=== PATIENT | female | born 1960 | race African-American/Black ===

== ENCOUNTER 2017-07-13 18:10 | Inpatient (IN) | payer MEDICAID ==
[~2017-07-13] VITALS: Ht 160 cm; Wt 49.0 kg
--- NOTE | 2017-07-13 18:10 | NUR ---
PATIENT BIBA TO BED 11; DR. CANDELARIA AND RESPIRATORY THERAPIST LIS AT BEDSIDE.
[2017-07-13 18:12] VITALS: BP 109/82
--- NOTE | 2017-07-13 18:12 | NUR ---
56Y/F LISAA FROM [facility]IS [facility] FOR ACUTE ONSET OF SOB. AWAKE AND ALERT ON ARRIVAL. TO BED 11.AAOX4 WITH EVEN AND STEADY GAIT; VSS; PATIENT POSITIONED FOR COMFORT; HOB ELEVATED; BEDRAILS UP X1; BED DOWN. ER MD MADE AWARE OF PT STATUS.
[2017-07-13] MEDS ORDERED: methylPREDNISolone SS 125 MG/2 ML VIAL IVP ONE (18:15)
[2017-07-13] MEDS ORDERED: ALBUTEROL SULFATE/IPRATROPIU 3 ML SOL IH ONE ×2 (18:15→21:50)
[2017-07-13] MEDS ORDERED: OMEP20TC12 PO (18:28)
[2017-07-13] MEDS ORDERED: PHO667 PO (18:28)
[2017-07-13] MEDS ORDERED: NIFE60TE5 PO (18:28)
[2017-07-13] MEDS ORDERED: AMLO10TA PO (18:28)
[2017-07-13] MEDS ORDERED: VITA1TAB44 PO (18:28)
[2017-07-13] MEDS ORDERED: ROPI2TER PO (18:28)
[2017-07-13] MEDS ORDERED: ALBU0.0912 IH (18:28)
[2017-07-13] MEDS ORDERED: CLON0.1T42 PO (18:28)
[2017-07-13] MEDS ORDERED: SPIMDI INH (18:28)
[2017-07-13] MEDS ORDERED: ACET-787 PO (18:28)
[2017-07-13] MEDS ORDERED: LON10 PO (18:28)
[2017-07-13] MEDS ORDERED: ASPI81CT89 PO (18:28)
[2017-07-13] MEDS ORDERED: METO50TE2 PO (18:28)
[2017-07-13] MEDS ORDERED: PRED20TA5 PO (18:28)
[2017-07-13] MEDS ORDERED: LISI30TA6 PO (18:28)
[2017-07-13 19:00] LABS: BASOPHILS % (AUTO) 0.2 % (0.0-2.0); EOSINOPHILS # (AUTO) 0.2 K/uL (0-0.4); EOSINOPHILS % (AUTO) 2.6 % (0.0-4.0); HEMATOCRIT 36.7 % (36-48); HEMOGLOBIN 11.7 g/dL (12.0-16.0); LYMPHOCYTES % (AUTO) 16.5 % (20.5-51.1); MEAN CORPUSCULAR HEMOGLOBIN 28 pg (27-31); MEAN CORPUSCULAR HGB CONC 32 g/dL (33-37); MEAN CORPUSCULAR VOLUME 87.9 fL (80-94); MONOCYTES # (AUTO) 0.4 K/uL (0.8-1.0); MONOCYTES % (AUTO) 6.2 % (1.7-9.3); NEUTROPHILS # (AUTO) 4.4 K/uL (1.8-7.7); NEUTROPHILS % (AUTO) 74.5 % (42.2-75.2); PLATELET COUNT (AUTO) 374 K/uL (140-450); RED BLOOD CELL COUNT(AUTO) 4.17 MIL/uL (4.20-5.40); RED CELL DISTRIBUTION WIDTH 19.7 % (11.6-13.7); WHITE BLOOD COUNT (AUTO) 5.9 K/uL (4.8-10.8)
--- NOTE | 2017-07-13 19:00 | NUR ---
RECEIVED REPORT FROM BARTOLOME HENNING. TRANSFER OF CARE AT THIS TIME.
--- NOTE | 2017-07-13 19:05 | NUR ---
PATIENT RESTING AT THIS TIME. NO SIGNS OF DISTRESS.
[2017-07-13 19:13] LABS: ANION GAP 7.6 (8-16); CARBON DIOXIDE 38.4 mmol/L (21-32)
--- NOTE | 2017-07-13 19:15 | NUR ---
PATIENT PROVIDED URINE AT THIS TIME.
[2017-07-13 19:19] LABS: ALBUMIN 3.8 g/dL (3.4-5.0); TOTAL BILIRUBIN 0.5 mg/dL (0.0-1.0)
[2017-07-13 19:22] LABS: CREATININE 4.6 mg/dL (0.6-1.3)
[2017-07-13 19:29] LABS: PROTHROMBIN TIME 9.9 secs (10.8-13.4)
[2017-07-13 21:04] LABS: APPEARANCE,URINE CLEAR (CLEAR); BILIRUBIN,URINE NEGATIVE (NEGATIVE); BLOOD, URINE TRACE-I (NEGATIVE); COLOR,URINE YELLOW (YELLOW); LEUKOCYTE ESTERASE ,URINE 2+ (NEGATIVE); NITRITE, URINE NEGATIVE (NEGATIVE); PH,URINE 8.5 (5.0-9.0); UGLUCOSE 1+ (NEGATIVE)
[2017-07-13 21:23] LABS: RBC,URINE 0-5 (RARE) /HPF (0-5); WBC,URINE TOO MANY TO COUNT /HPF (0-5)
[2017-07-13] MEDS ORDERED: FUROSEMIDE 40 MG/4 ML VIAL IVP SCH (21:50)
[2017-07-13] MEDS ORDERED: cefTRIAXone 1,000 MG VIAL ONE (21:54)
--- NOTE | 2017-07-13 22:00 | NUR ---
PATIENT RESTING AT THIS TIME. NO SIGNS OF DISTRESS.
[2017-07-13] MEDS ORDERED: MORPHINE SULFATE 2 MG/ML SYR IVP PRN (22:05)
[2017-07-13] MEDS ORDERED: HYDROcodone/APAP 7.5/325 MG 1 TAB PO PRN (22:05)
[2017-07-13] MEDS ORDERED: DOCUSATE SODIUM 100 MG GELCAP PO PRN (22:05)
[2017-07-13] MEDS ORDERED: ONDANSETRON 4 MG/2 ML VIAL IM/IVP PRN (22:05)
[2017-07-13] MEDS ORDERED: ACETAMINOPHEN 325 MG TAB PO PRN (22:05)
[2017-07-13] MEDS ORDERED: HEPARIN PER PHARMACY MC PRN (22:20)
[2017-07-13] MEDS ORDERED: hePARIN / DEXT 5% PREMIX 250 ML IV SCH (22:20)
[2017-07-13] MEDS ORDERED: HYDROcodone/APAP 10/325 MG 1 TAB TAB PO PRN (22:25)
[2017-07-13] MEDS ORDERED: POTASSIUM CHL 40 MEQ/ D5-1/2NS 1,000 ML IV ONE (22:25)
[2017-07-13] MEDS ORDERED: hydrALAZINE 25 MG TAB PO SCH (22:45)
--- NOTE | 2017-07-13 22:46 | NUR ---
ER RESIDENT MADE OF HIGH BP, AT BEDSIDE.
--- NOTE | 2017-07-13 22:50 | NUR ---
TELE NURSE SITAL AND KAROLINE MADE AWARE OF BP. PT ASYMPTOMATIC AT THIS TIME, AOX4. ER MD DR. CHAVEZ AND DR. SIM AWARE. OK TO GO TO TELE.
--- NOTE | 2017-07-13 22:55 | NUR ---
Patient will be admitted to care of DR. NIETO. Admited to TELE. Will go to room 114. Belongings list completed. Report to GEORGE HENNING.
--- NOTE | 2017-07-13 22:55 | NUR ---
ADMITTED 56 F FROM ER TO [facility] BY ALBERTO. PT CC IS SOB SECONDARY TO CHF EXACERBATION. PT VS NOTED BP 198/81, HR 112, RR 18, O2 SAT 94% ON NC @3LPM., T 98.8. PT IS ON TELE MONITOR. PT AOX4, AMBULATORY WITH NO COMPLAIN OF ANY DISCOMFORT , NO PAIN. HAS LFT UA AV SHUNT . HAS IV ACCESS RT WRIST 20G. LINE CLEAR AND PATENT. ORIENTED PT TO HOSPITAL ROUTINE. PLAN OF CARE DISCUSSED, VERBALIZED UNDERSTANDING. 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 BED AT LOW POSITION, CALL LIGHT WITHIN REACH. WILL CONTINUE TO MONITOR.
[2017-07-13] MEDS ORDERED: cloNIDine 0.1 MG TAB PO SCH (23:05)
[2017-07-13 23:23] VITALS: BP 198/81
[2017-07-13 23:24] LABS: BARBITURATE, URINE NEG. ng/ml (NEG <=200); BENZODIAZEPINE, URINE NEG. ng/mL (NEG <=200); CANNABINOID, URINE NEG. ng/mL (NEG <=50); COCAINE, URINE POS. ng/mL (NEG <=300); OPIATE, URINE NEG. ng/mL (NEG <=2000); PHENCYCLIDINE SCREEN,URINE NEG. ng/mL (NEG <=25)
[2017-07-13] MEDS ORDERED: KCL 20 MEQ/WATER INJ PREMIX 200 ML IV SCH (23:35)
--- NOTE | 2017-07-14 00:37 | NUR ---
ADMINISTERED HEPARIN BOLUS 3000 UNITS IVP PER PROTOCOL . WILL START HEPARIN DRIP ORDERED.
[2017-07-14] MEDS: hePARIN / DEXT 5% PREMIX 250 ML IV SCH ×3 (00:45→19:01)
[2017-07-14] MEDS: ALBUTEROL SULFATE/IPRATROPIU 3 ML SOL IH SCH ×4 (01:15→19:24)
--- NOTE | 2017-07-14 02:48 | NUR ---
PT COMPLAINING OF TOO MUCH PAIN ON RT FA 20G DUE TO K RIDER . REFUSED SECOND BAG OF [address] SIM MADE AWARE. HE SAYS OKAY TO HOLD IT FOR NOW. MIGHT GIVE IN K RIDER LATER IN MORNING WITH LIDOCAINE. HE WAS ALSO MADE AWARE OF BP 185/83, HR 114 AFTER CLONIDINE. WILL DO ORDER.
[2017-07-14 04:14] VITALS: BP 188/79
--- NOTE | 2017-07-14 04:44 | NUR ---
ADMINISTERED LISINOPRIL 40 MG ONE TIME DOSE FOR BP 188/79, HR 114 TO PT ORDERED. PT LYING ON BED, AT REST. NO SIGN OF DISTRESS. WILL CONTINUE TO MONITOR PT.
[2017-07-14] MEDS ORDERED: LISINOPRIL 20 MG TAB PO SCH (05:00)
--- NOTE | 2017-07-14 05:32 | NUR ---
BP STILL ELEVATED 181/83 ,HR-[address] SIM MADE AWARE . ALSO AWARE ABOUT THE TROPONIN TRENDING DOWN 0.059 .
[2017-07-14 06:23] VITALS: BP 178/77
[2017-07-14 06:23] LABS: MAGNESIUM 2.1 mg/dL (1.8-2.4); THYROID STIMULATING HORMONE 0.09 uIU/mL (0.34-3.74)
--- NOTE | 2017-07-14 06:25 | NUR ---
PT LATEST BP 178/77, HR 114, RR 16, O2 SAT 98% ON NC@3LPM, T 98.5. PT RESTING ON BED. PT ASKING FOR BREAKFAST , PT NOTIFIED ABOUT THE TIME. PT STABLE AT THIS TIME. WILL CONTINUE TO MONITOR.
[2017-07-14] MEDS ORDERED: predniSONE 20 MG TAB PO SCH ×2 (06:30→07:15)
[2017-07-14] MEDS ORDERED: NON-FORMULARY ITEM (Omeprazole (Omeprazole) 20 MG) PO SCH (06:30)
[2017-07-14 06:43] LABS: CHOL/HDL RATIO 2.2 (1-4.5)
[2017-07-14 06:54] LABS: BASOPHILS % (AUTO) 0.1 % (0.0-2.0); HEMATOCRIT 29.7 % (36-48); HEMOGLOBIN 9.4 g/dL (12.0-16.0); LYMPHOCYTES # (AUTO) 0.8 K/uL (2.5-16.5); LYMPHOCYTES % (AUTO) 12.8 % (20.5-51.1); MEAN CORPUSCULAR HEMOGLOBIN 28 pg (27-31); MEAN CORPUSCULAR HGB CONC 32 g/dL (33-37); MEAN CORPUSCULAR VOLUME 88.2 fL (80-94); MONOCYTES # (AUTO) 0.4 K/uL (0.8-1.0); MONOCYTES % (AUTO) 6.5 % (1.7-9.3); NEUTROPHILS # (AUTO) 5.1 K/uL (1.8-7.7); NEUTROPHILS % (AUTO) 80.6 % (42.2-75.2); PLATELET COUNT (AUTO) 323 K/uL (140-450); RED BLOOD CELL COUNT(AUTO) 3.37 MIL/uL (4.20-5.40); RED CELL DISTRIBUTION WIDTH 19.2 % (11.6-13.7); WHITE BLOOD COUNT (AUTO) 6.3 K/uL (4.8-10.8)
[2017-07-14] MEDS: BUDESONIDE 0.25 MG/2 ML NEBU INH SCH ×2 (06:59→19:24)
--- NOTE | 2017-07-14 07:10 | NUR ---
RECEIVED PATIENT REPORT AT BEDSIDE. PATIENT IS ASLEEP BUT AROUSABLE. NO S/S OF DISTRESS NOTED. PATIENT ON 2L O2. NO SOB. PATIENT ON HEPARIN DRIP INFUSING AT 6ML/HR. AV SHUNT NOTED TO THE LEFT UPPER ARM. THRILL AND BRUIT NOTED. PATIENT ON TELE MONITORING. BED LOWERED WITH CALL LIGHT WITHIN REACH. WILL CONTINUE TO MONITOR
--- NOTE | 2017-07-14 07:25 | NUR ---
ENDORSED PT TO AM NURSE AT BEDSIDE FOR CONTINUITY OF CARE. PT IN A STABLE CONDITION.
--- NOTE | 2017-07-14 07:42 | NUR ---
DECREASED FIO2 TO 2LPMNC RN AWARE
[2017-07-14] MEDS ORDERED: NIFEdipine 60 MG TABER PO SCH (09:00)
[2017-07-14] MEDS ORDERED: LISINOPRIL 10 MG TAB PO SCH (09:00)
[2017-07-14] MEDS ORDERED: NON-FORMULARY ITEM (Tiotropium Bromide* (Spiriva Mdi*) 1 CAP) INH SCH (09:00)
[2017-07-14] MEDS ORDERED: MINOXIDIL 10 MG TAB PO SCH ×2 (09:00)
[2017-07-14] MEDS ORDERED: amLODIPine 5 MG TAB PO SCH (09:00)
[2017-07-14] MEDS ORDERED: METOPROLOL SUCCINATE 50 MG TABER PO SCH (09:00)
[2017-07-14] MEDS ORDERED: POTASSIUM CHLORIDE 10 MEQ TABER PO ONE (09:15)
--- NOTE | 2017-07-14 09:16 | NUR ---
FAXED INITIAL REVIEW TO [facility] [phone] PHONE [phone] FAXED INITIAL REVIEW TO [facility] [phone] PHONE RIMMA [phone]
[2017-07-14] MEDS: PANTOPRAZOLE 40 MG TABEC PO SCH (09:32)
[2017-07-14] MEDS: CALCIUM ACETATE 667 MG TAB PO SCH ×3 (09:32→17:40)
[2017-07-14] MEDS: METOPROLOL 50 MG TAB PO SCH ×2 (09:32→20:28)
[2017-07-14] MEDS: ASPIRIN 81 MG TAB.CHEW PO SCH (09:32)
[2017-07-14] MEDS: LACTOBACILLUS RHAMNOSUS GG 1 EACH CAP PO SCH (09:33)
[2017-07-14] MEDS: cloNIDine 0.1 MG TAB PO SCH ×2 (09:33→20:25)
[2017-07-14] MEDS: VIT-B COMP/VIT-C/FOLIC ACID 1 TAB PO SCH (09:34)
[2017-07-14] MEDS: MINOXIDIL 10 MG TAB PO SCH (09:34)
[2017-07-14 11:00] LABS: ANION GAP 13.7 (8-16); CARBON DIOXIDE 32.6 mmol/L (21-32); POTASSIUM 4.3 mmol/L (3.5-5.1)
[2017-07-14 11:21] LABS: MAGNESIUM 2.3 mg/dL (1.8-2.4); PHOSPHORUS 5.5 mg/dL (2.5-4.9)
[2017-07-14 11:25] LABS: CREATININE 6.1 mg/dL (0.6-1.3)
[2017-07-14 12:00] VITALS: BP 177/96
[2017-07-14] MEDS: predniSONE 20 MG TAB PO SCH ×2 (13:12→20:27)
[2017-07-14] MEDS: FUROSEMIDE 20 MG/2 ML VIAL IVP SCH (13:12)
--- NOTE | 2017-07-14 13:12 | NUR ---
MADE DR CONKLIN AWARE OF PATIENT'S PERSISTENT HIGH BLOOD PRESSURE. DR HENRY PUT ORDERS
--- NOTE | 2017-07-14 13:19 | NUR ---
PATIENT BEING EVALUATED BY DR CONKLIN
--- NOTE | 2017-07-14 13:46 | NUR ---
SPOKE TO CAITLIN DELEON AND INFORMED HER ABOUT THE HEMODIALYSIS ORDER FOR THE PATIENT TOMORROW. PER CAITLIN DELEON, SHE WILL BE HERE TOMORROW BY 0900
[2017-07-14] MEDS ORDERED: NIFEdipine 30 MG TABER PO SCH (14:00)
--- NOTE | 2017-07-14 14:45 | NUR ---
PATIENT AMBULATED TO THE BATHROOM TO VOID
[2017-07-14 16:00] VITALS: BP 170/83
--- NOTE | 2017-07-14 16:11 | NUR ---
PATIENT LEFT THE UNIT FOR CT
--- NOTE | 2017-07-14 16:22 | NUR ---
PATIENT BACK TO THE UNIT. CT NOT DONE AT THIS TIME. PATIENT IS HAVING DIFFICULTY LAYING FLAT. NOTIFIED DR MORAN AND DR UP
[2017-07-14] MEDS ORDERED: LORazepam 2 MG/ML VIAL IVP SCH (17:00)
[2017-07-14] MEDS: ALBUTEROL SULFATE/IPRATROPIU 3 ML SOL IH PRN (17:03)
--- NOTE | 2017-07-14 17:12 | NUR ---
PATIENT GIVEN BREATHING TX AND ATIVAN PER DOCTOR'S ORDER THEN LEFT THE UNIT FOR CT
[2017-07-14 18:03] LABS: PROTHROMBIN TIME 11.1 secs (10.8-13.4)
--- NOTE | 2017-07-14 19:30 | NUR ---
PATIENT REPORT GIVEN AT BEDSIDE. PATIENT CURRENTLY RECEIVING BREATHING TX
--- NOTE | 2017-07-14 19:30 | NUR ---
RECEIVED REPORT FROM JAMESON HENNING AT BEDSIDE. PT SITTING UP IN BED AND RECEIVING BREATHING TREATMENTS AT THIS TIME. PT HAS HEPARIN GTT RUNNING AT 1000 UNITS AN HOUR VIA R FARM 20 G IV SITE.. PT HAS LFET ARM AV SHUNT WITH THRILL AND BRUIT FELT. PT DUE FOR DIALYSIS TOMORROW MORNING. PT ON 2L O2 VIA N/C. PT HAS EVEN AND UNLABORED RESPIRATIONS. SHE HAD NO C/O VOICED AT THIS TIME. BED LOW SIDE RAILS UP AND CALL MILLAN IN REACH.
[2017-07-14 20:00] VITALS: BP 184/85
[2017-07-14] MEDS ORDERED: ROPINIROLE HCL 1 MG PO SCH (21:00)
--- NOTE | 2017-07-14 21:33 | NUR ---
CEASAR FORM ULTRA SOUND AT BEDSIDE TO DO BLADDER AND KIDNEY SCAN.
[2017-07-14] MEDS ORDERED: cloNIDine 0.1 MG TAB PO SCH (23:00)
--- NOTE | 2017-07-14 23:09 | NUR ---
PT B/P DURING RETAKE WAS 197/90. AT THIS TIME PT HAD BEEN UP AND BRUSHING HER TEETH. B/P RETAKEN 10 MINUTES LATER AFTER PT HAD CINDY RESTING IN BED, AND RETAKE WAS 181/81. ATTENDING DR NOTIFIED AND ORDERED ANOTHER CATAPRES 0.1MG TO BE GIVEN NOW. WILL CONTINUE TO MONITOR B/P. PT IS ASYMPTOMATIC AT THIS TIME WITH NO C/O VOICED.
[2017-07-15] VITALS (7 sets, daily range): BP systolic 126–178; BP diastolic 51–85
[2017-07-15] MEDS ORDERED: predniSONE 20 MG TAB PO SCH
[2017-07-15] MEDS: ALBUTEROL SULFATE/IPRATROPIU 3 ML SOL IH SCH ×4 (00:31→19:39)
--- NOTE | 2017-07-15 00:51 | NUR ---
PT APTT RESULT WAS 37.3 HEPARIN BOLUS OF 1500 WAS GIVEN AND DOSAGE ADJUSTED TO 1100 UNITS/HR. PT SITTING UP IN BED WITH NO C/O VOICED AT THIS TIME. BED IN LOW POSITION 2 SIDE RAILS UP AND CALL MILLAN IN REACH.
[2017-07-15] MEDS: hePARIN / DEXT 5% PREMIX 250 ML IV SCH ×2 (00:53→08:25)
[2017-07-15] MEDS: predniSONE 20 MG TAB PO SCH ×3 (04:32→20:41)
[2017-07-15 06:19] LABS: T4 (THYROXINE) 8.5 ug/dL (4.5-12.0)
[2017-07-15] MEDS: BUDESONIDE 0.25 MG/2 ML NEBU INH SCH ×2 (06:37→19:40)
[2017-07-15 07:11] LABS: BASOPHILS % (AUTO) 0.1 % (0.0-2.0); LYMPHOCYTES # (AUTO) 0.5 K/uL (2.5-16.5); LYMPHOCYTES % (AUTO) 6.5 % (20.5-51.1); MEAN CORPUSCULAR HEMOGLOBIN 27 pg (27-31); MEAN CORPUSCULAR HGB CONC 31 g/dL (33-37); MEAN CORPUSCULAR VOLUME 87.9 fL (80-94); MONOCYTES # (AUTO) 0.2 K/uL (0.8-1.0); MONOCYTES % (AUTO) 1.9 % (1.7-9.3); NEUTROPHILS # (AUTO) 7.5 K/uL (1.8-7.7); NEUTROPHILS % (AUTO) 91.5 % (42.2-75.2); PLATELET COUNT (AUTO) 386 K/uL (140-450); RED BLOOD CELL COUNT(AUTO) 3.64 MIL/uL (4.20-5.40); RED CELL DISTRIBUTION WIDTH 19.2 % (11.6-13.7); WHITE BLOOD COUNT (AUTO) 8.2 K/uL (4.8-10.8)
[2017-07-15 07:19] LABS: ANION GAP 14.7 (8-16); CARBON DIOXIDE 32.8 mmol/L (21-32); POTASSIUM 5.5 mmol/L (3.5-5.1)
[2017-07-15 07:24] LABS: CREATININE 7.9 mg/dL (0.6-1.3)
[2017-07-15 07:27] LABS: MAGNESIUM 2.5 mg/dL (1.8-2.4); PHOSPHORUS 8.2 mg/dL (2.5-4.9)
--- NOTE | 2017-07-15 07:30 | NUR ---
RECEIVED ON BED AAOX4. NO SOB NOTED. NO C/O PAIN AT THIS TIME. IV TO RT HAND PATENT AND INTACT. WITH SHAKIRA AV SHUNT, THRILL AND BRUITS FELT. PT IS FOR HD TODAY. CHEST DIMINISHED AIR ENTRY TO THE BASES, WHEEZING HEARD BILATERALLY. ABDOMEN SOFT, BOWEL SOUNDS PRESENT.NO EDEMA NOTED. INSTRUCTED PT TO CALL FOR ASSISTANCE, CALL LIGHT WITHIN REACH, PT VERBALIZED UNDERSTANDING.
--- NOTE | 2017-07-15 07:30 | NUR ---
LAB CALLED TO REPORT CRITICAL VALUE CREATINE CLEARANCE OF 7.9 H. PT IS ON DIALYSIS AND WILL BE GETTING DIALYSIS THIS AM. CHARGE NURSE AWARE
--- NOTE | 2017-07-15 07:31 | NUR ---
ON HEPARIN DRIP AT 11 MLS/ HR.
[2017-07-15] MEDS: VIT-B COMP/VIT-C/FOLIC ACID 1 TAB PO SCH (08:13)
[2017-07-15] MEDS: CALCIUM ACETATE 667 MG TAB PO SCH ×3 (08:13→17:00)
[2017-07-15] MEDS: LACTOBACILLUS RHAMNOSUS GG 1 EACH CAP PO SCH (08:14)
[2017-07-15] MEDS: PANTOPRAZOLE 40 MG TABEC PO SCH (08:14)
[2017-07-15] MEDS: ASPIRIN 81 MG TAB.CHEW PO SCH (08:14)
[2017-07-15] MEDS: FUROSEMIDE 20 MG/2 ML VIAL IVP SCH (08:15)
[2017-07-15] MEDS: METOPROLOL 50 MG TAB PO SCH ×2 (09:00→20:37)
[2017-07-15] MEDS: LISINOPRIL 20 MG TAB PO SCH (09:00)
[2017-07-15] MEDS ORDERED: LISINOPRIL 20 MG TAB PO SCH (09:00)
[2017-07-15] MEDS: cloNIDine 0.1 MG TAB PO SCH ×2 (09:00→20:38)
[2017-07-15] MEDS: MINOXIDIL 10 MG TAB PO SCH (09:00)
[2017-07-15] MEDS ORDERED: NIFEdipine 30 MG TABER PO SCH (09:00)
--- NOTE | 2017-07-15 09:23 | NUR ---
FOLLOWED UP TUCKER FROM [facility] ([phone]) REGARDING PT'S HD SCHEDULE TODAY. TUCKER STATED THAT THE HD NURSE WILL BE HERE AROUND 4 PM TODAY. WILL NOTIFY PT.
[2017-07-15] MEDS ORDERED: methylPREDNISolone SS 40 MG/ML VIAL IVP SCH (09:30)
--- NOTE | 2017-07-15 09:43 | NUR ---
HEPARIN DRIP DISCONTINUED ORDERED.
--- NOTE | 2017-07-15 13:00 | NUR ---
PT SEEN BY DR. CANNON (CARDIOLOGY). NO NEW ORDERS.
--- NOTE | 2017-07-15 16:00 | NUR ---
CALLED CAITLIN FROM [facility] TO FOLLOW UP WITH THE HD SCHED, STATED THE NURSE WILL BE HERE SOON.
[2017-07-15] MEDS: ALBUTEROL SULFATE/IPRATROPIU 3 ML SOL IH PRN (16:43)
--- NOTE | 2017-07-15 17:07 | NUR ---
PT THROWING UP SMALL AMOUNT OF PREVIOUSLY EATEN FOOD. MEDICATED PT WITH ZOFRAN IVP ORDERED PRN.
[2017-07-15] MEDS ORDERED: SIMETHICONE 80 MG TAB.CHEW PO PRN (17:20)
--- NOTE | 2017-07-15 18:58 | NUR ---
DIALYSIS NURSE IS HERE. PT RESTING. NO SOB NOTED. NO COMPLAINTS MADE. WILL ENDORSE TO NEXT SHIFT NURSE FOR CONTINUITY OF CARE.
--- NOTE | 2017-07-15 18:58 | NUR ---
RECEIVED PATIENT ON BED WITH ON GOING DIALYSIS. FALL PRECAUTION IMPLEMENTED. CALL LIGHT WITHIN REACH. DISCUSS PLAN OF CARE TO PATIENT. WILL CONTINUE TO MONITOR.
--- NOTE | 2017-07-15 19:19 | NUR ---
RECEIVED TRACH PT ON VENT SETTINGS: AC/VC VT 500, RR 12, PEEP 5 AND FI02 30%. AIRWAY IS SECURED AND PATENT. VENT IS PLUGGED INTO RED OUTLET AND AMBU-BAG IS IN ROOM. VENT ALARMS ARE SET, WORKING AND AUDIBLE. NO RESPIRATORY DISTRESS NOTED. WILL CONTINUE TO MONITOR PT.
--- NOTE | 2017-07-15 21:03 | NUR ---
DUE MEDS GIVEN WITH CONSENT OF GREENHOUSE MANAGER. NO S/S OF DISTRESS NOTED AT THIS TIME. WILL CONTINUE TO MONITOR.
--- NOTE | 2017-07-15 23:33 | NUR ---
SEEN PATIENT ASLEEP ON BED. FALL PRECAUTION IMPLEMENTED. CALL LIGHT WITHIN REACH. NO S/S OF DISTRESS NOTED AT THIS TIME. WILL CONTINUE TO MONITOR.
[2017-07-16] MEDS: ALBUTEROL SULFATE/IPRATROPIU 3 ML SOL IH SCH ×3 (01:39→12:50)
--- NOTE | 2017-07-16 02:05 | NUR ---
SEEN PATIENT ASLEEP ON BED. FALL PRECAUTION IMPLEMENTED.CALL LIGHT WITHIN REACH. NO S/S OF DISTRESS NOTED AT THIS TIME.
[2017-07-16 04:00] VITALS: BP 147/51
--- NOTE | 2017-07-16 04:15 | NUR ---
SEEN PATIENT ASLEEP ON BED BUT EASILY AROUSABLE. CALL LIGHT WITHIN REACH. WILL CONTINUE TO MONITOR.
[2017-07-16] MEDS: BUDESONIDE 0.25 MG/2 ML NEBU INH SCH (06:49)
--- NOTE | 2017-07-16 07:21 | NUR ---
ENDORSEMENT GIVEN TO AM SHIFT NURSE FOR CONTINUITY OF CARE. PATIENT IN STABLE CONDITION.
--- NOTE | 2017-07-16 07:22 | NUR ---
RECEIVED BEDSIDE REPORT FROM ACCOUNT MANAGER RELIEF NURSE. PATIENT IS SLEEPING,. NO SIGNS OF RESP DISTRESS ON 2L NC. SHE HAS DIALYSIS YESTERDAY, OUTPUT OF 2L. LUE FISTULA, ID BAND ON L ARM FOR RESTRICTIONS AND SIGN POSTED. SHE IS EASILY AROUSABLE ALERT AND ORIENTEDX4. SHE IS AMBULATORY, SKIN IS INTACT. TELE MONITOR IN PLACE. R WRIST 20 TKO NS. IV IS CLEAN, DRY AND INTACT. WILL CONTINUE TO MONITOR THE PATIENT. BED IN LOW POSITION. CALL LIGHT WITHIN REACH.
[2017-07-16 07:36] LABS: BASOPHILS % (AUTO) 0.1 % (0.0-2.0); HEMATOCRIT 28.8 % (36-48); HEMOGLOBIN 9.1 g/dL (12.0-16.0); LYMPHOCYTES # (AUTO) 0.4 K/uL (2.5-16.5); LYMPHOCYTES % (AUTO) 4.3 % (20.5-51.1); MEAN CORPUSCULAR HEMOGLOBIN 28 pg (27-31); MEAN CORPUSCULAR HGB CONC 32 g/dL (33-37); MEAN CORPUSCULAR VOLUME 88.6 fL (80-94); MONOCYTES # (AUTO) 0.3 K/uL (0.8-1.0); NEUTROPHILS % (AUTO) 92.6 % (42.2-75.2); PLATELET COUNT (AUTO) 358 K/uL (140-450); RED BLOOD CELL COUNT(AUTO) 3.25 MIL/uL (4.20-5.40); RED CELL DISTRIBUTION WIDTH 19.2 % (11.6-13.7); WHITE BLOOD COUNT (AUTO) 8.7 K/uL (4.8-10.8)
[2017-07-16 07:44] LABS: ANION GAP 12.1 (8-16); CARBON DIOXIDE 32.3 mmol/L (21-32); MAGNESIUM 1.9 mg/dL (1.8-2.4); PHOSPHORUS 6.7 mg/dL (2.5-4.9); POTASSIUM 4.4 mmol/L (3.5-5.1); TOTAL BILIRUBIN 0.3 mg/dL (0.0-1.0)
[2017-07-16 07:53] LABS: CREATININE 5.1 mg/dL (0.6-1.3)
[2017-07-16 08:00] VITALS: BP 156/72
[2017-07-16] MEDS: CALCIUM ACETATE 667 MG TAB PO SCH ×2 (08:55→12:37)
[2017-07-16] MEDS: FUROSEMIDE 20 MG/2 ML VIAL IVP SCH (08:55)
[2017-07-16] MEDS ORDERED: NIFEdipine 30 MG TABER PO SCH (10:25)
[2017-07-16] MEDS: METOPROLOL 50 MG TAB PO SCH (10:35)
[2017-07-16] MEDS: ASPIRIN 81 MG TAB.CHEW PO SCH (10:35)
[2017-07-16] MEDS: MINOXIDIL 10 MG TAB PO SCH (10:35)
[2017-07-16] MEDS: LACTOBACILLUS RHAMNOSUS GG 1 EACH CAP PO SCH (10:36)
[2017-07-16] MEDS: VIT-B COMP/VIT-C/FOLIC ACID 1 TAB PO SCH (10:36)
[2017-07-16] MEDS: LISINOPRIL 20 MG TAB PO SCH (10:36)
[2017-07-16] MEDS: cloNIDine 0.1 MG TAB PO SCH (10:38)
[2017-07-16] MEDS: PANTOPRAZOLE 40 MG TABEC PO SCH (10:40)
--- NOTE | 2017-07-16 10:49 | NUR ---
STUDENT NURSE PASSED MEDS WITH PROFESSOR. PATIENT TOLERATED WELL. WILL CONTINUE TO MONITOR THE PATIENT.
--- NOTE | 2017-07-16 11:32 | NUR ---
PATIENT IS SLEEPING. NO SIGNS OF DISTRESS ON 2L NC. WILL CONTINUE TO MONITOR THE PATIENT.
[2017-07-16 12:00] VITALS: BP 134/65
[2017-07-16 12:08] VITALS: BP 134/65
[2017-07-16] MEDS ORDERED: PUL.25N INH (12:23)
[2017-07-16] MEDS ORDERED: SIME80CT27 PO (12:23)
[2017-07-16] MEDS ORDERED: PANT40EC28 PO (12:23)
[2017-07-16] MEDS ORDERED: METH4TAB3 PO (12:23)
[2017-07-16] MEDS ORDERED: CLON0.1T42 PO (12:23)
[2017-07-16] MEDS ORDERED: IPRA3AMP IH (12:23)
[2017-07-16] MEDS ORDERED: LEVO250T2 PO (12:23)
[2017-07-16] MEDS ORDERED: ADA30 PO (12:23)
[2017-07-16] MEDS ORDERED: LACT10CA PO (12:23)
[2017-07-16] MEDS ORDERED: FURO-572 PO (12:23)
[2017-07-16] MEDS ORDERED: PNEUMOCOCCAL VACCINE 23 MCG/0.5 ML VIAL IMVAC SCH (13:10)
--- NOTE | 2017-07-16 13:28 | NUR ---
EDUCATED PATIENT ON DISEASE PROCESS, ABN S/SX AND WHEN TO GO TO THE NEAREST ER, EDUCATED ON MEDS AND GAVE HER PRESCRIPTIONS. TOLD HER TO F/U WITH PCP WITHIN 3DAYS. ALL QUESTIONS ANSWERED. ALL PAPERWORK SIGNED. PATIENT VERBALIZED UNDERSTANDING. STUDENT NURSE WILL ADMINISTER PNA VACCINE BEFORE D/C. REMOVED ID BANDS, REMOVED IV, IV CATH INTACT. WILL REMOVE TELE MONITOR WHEN THE PATIENT LEAVES. WILL CONTINUE TO MONITOR, SHE IS AWAITING HER RIDE.
--- NOTE | 2017-07-16 14:32 | NUR ---
STUDENT NURSE REMOVED TELE MONITOR. PATIENTS RIDE IS ALMOST HERE.
--- NOTE | 2017-07-16 14:50 | NUR ---
PATIENT WHEELED TO THE FRONT LOBBY WITH HER IN STABLE CONDITION.
[2017-07-17] MEDS ORDERED: NIFEdipine 30 MG TABER PO SCH (09:00)
== END 2017-07-16 14:50 | disposition home or self-care (01) | DRG 816 ==
LOC: MED 18:10 → MTU 22:07
PROVIDERS: ADMIT Family Medicine; ATTEND Family Medicine
PROC: 5A1D70Z Performance of Urinary Filtration, Intermittent, Less than 6 Hours Per Day (ICD-10-PCS; principal; 2017-07-15)
DX: T40.5X1A Poisoning by cocaine, accidental (unintentional), initial encounter (principal); N17.0 Acute kidney failure with tubular necrosis; J96.00 Acute respiratory failure, unspecified whether with hypoxia or hypercapnia; G92 Toxic encephalopathy; I50.43 Acute on chronic combined systolic (congestive) and diastolic (congestive) heart failure; N18.6 End stage renal disease; I31.3 Pericardial effusion (noninflammatory); I42.9 Cardiomyopathy, unspecified; E44.0 Moderate protein-calorie malnutrition; E83.41 Hypermagnesemia; Z68.1 Body mass index [BMI] 19.9 or less, adult; I13.2 Hypertensive heart and chronic kidney disease with heart failure and with stage 5 chronic kidney disease, or end stage renal disease; J44.1 Chronic obstructive pulmonary disease with (acute) exacerbation; Y92.89 Other specified places as the place of occurrence of the external cause; Z99.81 Dependence on supplemental oxygen; I10 Essential (primary) hypertension; N39.0 Urinary tract infection, site not specified; K21.9 Gastro-esophageal reflux disease without esophagitis; J44.9 Chronic obstructive pulmonary disease, unspecified; I27.20 Pulmonary hypertension, unspecified; I16.0 Hypertensive urgency; I07.1 Rheumatic tricuspid insufficiency; I35.1 Nonrheumatic aortic (valve) insufficiency; I34.0 Nonrheumatic mitral (valve) insufficiency; E87.5 Hyperkalemia; E87.8 Other disorders of electrolyte and fluid balance, not elsewhere classified; N28.1 Cyst of kidney, acquired; E83.39 Other disorders of phosphorus metabolism; Z77.22 Contact with and (suspected) exposure to environmental tobacco smoke (acute) (chronic); G25.81 Restless legs syndrome; D63.8 Anemia in other chronic diseases classified elsewhere; D64.9 Anemia, unspecified; E87.6 Hypokalemia; Z99.2 Dependence on renal dialysis; Z92.3 Personal history of irradiation; Z90.12 Acquired absence of left breast and nipple; Z85.3 Personal history of malignant neoplasm of breast; Z90.49 Acquired absence of other specified parts of digestive tract; Z98.51 Tubal ligation status; Z82.5 Family history of asthma and other chronic lower respiratory diseases; Z80.1 Family history of malignant neoplasm of trachea, bronchus and lung; Z82.49 Family history of ischemic heart disease and other diseases of the circulatory system
CPT/HCPCS: 36415; 71045; 71275; 76770; 80048; 80053; 80305; 81001; 81025; 82150; 83036; 83605; 83690; 83735; 83880; 84100; 84436; 84443; 84479; 84484; 85025; 85610; 85730; 87040; 87081; 87086; 90732; 93005; 94640; 96365; 96375; 99285; J0696; J1644; J1940; J2060; J2405; J2920; J2930; J3480; J7030; J7060; J7512; J7620; J7626; Q0092; Q9967